=== PATIENT | female | born 1965 | race African-American/Black ===

== ENCOUNTER 2016-10-10 15:08 | Emergency (ER) | payer BC ==
[~2016-10-10] VITALS: Ht 165.1 cm; Wt 160.0 kg
[~2016-10-10 15:08] MED LIST: ALBU18HF INHALATION; AMLO-218 PO; ASPI-664 PO; FER325 PO; FLUO40CA10 PO; FURO-109 PO; FURO-110 PO; HYDR-762 PO; LEVO750T25 PO; NAPR-260 PO; ONDA4TAB35 PO; PANT40TA4 PO; PRED20TA PO
[2016-10-10 15:13] VITALS: Ht 165.1 cm; Wt 160.0 kg
[2016-10-10] MEDS ORDERED: KETOROLAC 30 MG INJ IV STA (20:36)
--- NOTE | 2016-10-10 20:41 | RADRPT ---
PROCEDURE: Ultrasound of the bilateral lower extremity venous system. CLINICAL INDICATION: Bilateral leg pain and swelling, deep venous thrombosis TECHNIQUE: Beltran scale with and without compression, color doppler, spectral doppler of the venous system of the bilateral lower extremities was performed. Venous augmentation maneuvers were utilized . COMPARISON: No prior studies are available for comparison. FINDINGS: RIGHT: Common femoral vein: Patent. Femoral vein: Patent. Popliteal vein: Patent. Calf veins: Patent. Small popliteal cyst is present measuring 2.0 x 1.2 cm LEFT: Common femoral vein: Patent. Femoral vein: Patent. Popliteal vein: Patent. Calf veins: Patent. Small popliteal cyst is present measuring 1.3 x 0.5 cm. IMPRESSION: No evidence of a deep vein thrombosis within the bilateral lower extremities. RPTAT: AADD .Salazar Arnold MD, MD Date Time Electronically viewed and signed by .Salazar Arnold MD, on 10/10/2016 20:41 .B/
[2016-10-10] MEDS ORDERED: LORAZEPAM 2 MG INJ IV ONE (21:00)
[2016-10-10 21:28] LABS: ADD SCAN DIFF NO
[2016-10-10 21:31] LABS: BASOPHILS % 0.5 % (0.0-2.0); EOSINOPHILS # 0.2 10^3/ul (0.0-0.5); EOSINOPHILS % 3.6 % (0.0-7.0); HEMATOCRIT 34.8 % (37.0-47.0); HEMOGLOBIN 10.8 g/dl (12.0-16.0); LYMPHOCYTES # 1.6 10^3/ul (0.8-2.9); LYMPHOCYTES % 27.2 % (15.0-51.0); MEAN CORPUSCULAR HEMOGLOBIN 28.4 pg (29.0-33.0); MEAN CORPUSCULAR VOLUME 91.6 fl (82.0-101.0); MEAN PLATELET VOLUME 10.4 fl (7.4-10.4); MONOCYTE # 0.5 10^3/ul (0.3-0.9); MONOCYTES % 9.2 % (0.0-11.0); NEUTROPHIL # 3.5 10^3/ul (1.6-7.5); NEUTROPHILS % 59.3 % (39.0-77.0); PLATELET COUNT 279 10^3/UL (140-415); RED CELL DISTRIBUTION WIDTH 18.9 % (11.5-14.5); WHITE BLOOD COUNT 5.9 10^3/ul (4.8-10.8)
[2016-10-10 21:57] LABS: ALBUMIN 3.9 g/dl (3.3-4.9); ALBUMIN/GLOBULIN RATIO 1.05; CALCIUM 9.2 mg/dl (8.4-10.2); CREATININE 0.89 mg/dl (0.44-1.00); POTASSIUM 3.9 mmol/L (3.5-5.1); TOTAL PROTEIN 7.6 g/dl (6.1-8.1)
--- NOTE | 2016-10-10 22:37 | RADRPT ---
PROCEDURE: XR Chest. CLINICAL INDICATION: Chest pain. TECHNIQUE: AP Portable chest. COMPARISON: 08/24/2015 chest x-ray FINDINGS: The soft tissues and bones are remarkable for bilateral acromioclavicular osteoarthropathy.. No foc al infiltrates, masses, or effusions are noted. The mediastinum and heart are remarkable for mild c ardiomegaly. No pneumothorax is present. IMPRESSION: 1. No radiographic evidence for acute cardiopulmonary disease 2. Mild cardiomegaly RPTAT: HDC .Zelda Madrid MD, MD Date Time Electronically viewed and signed by .Zelda Madrid MD, on 10/10/2016 22:37 .C/
[2016-10-10] MEDS ORDERED: HYDR-902 PO (23:24)
[2016-10-10] MEDS ORDERED: HYDR-906 PO (23:25)
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
[2016-10-11 06:10] VITALS: BP 142/76; PULSE 90; RESP 22; TEMP 98
[2016-10-11] MEDS ORDERED: FUROSEMIDE 20 MG INJ IV ONE (10:30)
== END 2016-10-11 10:50 | disposition home or self-care (01) ==
LOC: FTE 15:08
DX: R60.0 Localized edema (principal); I10 Essential (primary) hypertension; J44.9 Chronic obstructive pulmonary disease, unspecified; J45.909 Unspecified asthma, uncomplicated; I50.9 Heart failure, unspecified; F17.210 Nicotine dependence, cigarettes, uncomplicated; Z79.82 Long term (current) use of aspirin
CPT/HCPCS: 36415; 71010; 80053; 83880; 85025; 93970; 96374; 96375; J1885; J2060; Z7502